=== PATIENT | female | born 1970 | race Caucasian/White ===

== ENCOUNTER 2019-12-23 23:52 | Inpatient (IN) | payer BC ==
[~2019-12-23] VITALS: Ht 175.3 cm; Wt 113.6 kg
[2019-12-24] VITALS (9 sets, daily range): BP systolic 123–172; BP diastolic 74–103
[2019-12-24] MEDS ORDERED: nitroGLYCERIN 0.4mg/hour patch TD ONE (00:15)
[2019-12-24] MEDS ORDERED: aspirin 81mg tab.chew PO ONE (00:15)
[2019-12-24 00:31] LABS: BASOPHILS # (AUTO) 0.1 X10'3 (0-0.2); BASOPHILS % (AUTO) 0.9 % (0-1); EOSINOPHILS # (AUTO) 0.1 X10'3 (0-0.9); EOSINOPHILS % (AUTO) 1.3 % (0-6); HEMATOCRIT 42.9 % (35.0-45.0); HEMOGLOBIN 14.5 g/dl (12.0-16.0); LYMPHOCYTES # (AUTO) 2.1 X10'3 (1.1-4.8); LYMPHOCYTES % (AUTO) 26.9 % (21-51); MEAN CORPUSCULAR HEMOGLOBIN 32.4 PG (27.0-31.0); MEAN CORPUSCULAR HGB CONC 33.8 g/dL (33.0-36.5); MEAN CORPUSCULAR VOLUME 95.9 FL (78-98); MEAN PLATELET VOLUME 7.8 FL (7.4-10.4); MONOCYTES # (AUTO) 0.4 X10'3 (0-0.9); MONOCYTES % (AUTO) 5.1 % (2-12); NEUTROPHILS # (AUTO) 5.2 X10'3 (1.8-7.7); NEUTROPHILS % (AUTO) 65.8 % (42-75); PLATELET COUNT 193 X10'3 (140-440); RED BLOOD COUNT 4.47 X10'6 (4.20-5.60); RED CELL DISTRIBUTION WIDTH 13.3 % (11.5-14.5); WHITE BLOOD COUNT 7.9 X10'3 (4.5-11.0)
--- NOTE | 2019-12-24 00:33 | NUR ---
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
[2019-12-24 00:50] LABS: ALANINE AMINOTRANSFERASE 27 U/L (12-78); ALBUMIN 3.2 G/DL (3.4-5.0); ALBUMIN/GLOBULIN RATIO 0.9 (1.1-1.5); ALKALINE PHOSPHATASE 89 IU/L (46-116); ANION GAP 9 (8-16); ASPARTATE AMINO TRANSFERASE 27 U/L (10-37); BILIRUBIN,TOTAL 0.3 MG/DL (0.1-1.0); BLOOD UREA NITROGEN 7 MG/DL (7-18); BUN/CREATININE RATIO 7.8 (6.6-38.0); CALCIUM 8.6 MG/DL (8.5-10.1); CHLORIDE 106 MMOL/L (99-107); GLUCOSE 127 MG/DL (70-104); POTASSIUM 4.1 MMOL/L (3.5-5.1); SODIUM 140 MMOL/L (135-145); TOTAL CARBON DIOXIDE 24.8 MMOL/L (24-32); TOTAL PROTEIN 6.8 G/DL (6.4-8.2); eGFR 67 ML/MIN
[2019-12-24] MEDS ORDERED: mag hydrox/Alum hydrox/simeth 30ml oral suspension PO PRN (01:10)
[2019-12-24] MEDS ORDERED: ondansetron/PF 4mg/2ml inj IV PRN (01:10)
[2019-12-24] MEDS ORDERED: acetaminophen 325mg tablet PO PRN (01:10)
[2019-12-24] MEDS ORDERED: potassium Cl 20 mEq SR tablet PO PRN ×2 (01:10)
[2019-12-24] MEDS ORDERED: nitroGLYCERIN 0.4mg SUBLingual tab SL PRN ×2 (01:10→01:15)
[2019-12-24] MEDS ORDERED: magnesium hydroxide 30ml (MOM) UD suspension PO PRN (01:10)
[2019-12-24] MEDS ORDERED: potassium CL 10mEq/100ml bag 100 ML IV PRN ×2 (01:10)
[2019-12-24] MEDS ORDERED: magnesium 2GM in 50ml NS 50 ML IV PRN (01:10)
[2019-12-24] MEDS ORDERED: magnesium 4gm in 100ml NS 100 ML IV PRN (01:10)
[2019-12-24] MEDS ORDERED: magnesium Cl slow-release 64mg tablet PO PRN (01:10)
[2019-12-24] MEDS ORDERED: morphine 2 MG/ML inj. syringe IV PRN (01:10)
[2019-12-24] MEDS ORDERED: morphine 4 MG/ML inj SYRINge IV PRN (01:15)
[2019-12-24] MEDS ORDERED: regadenoson 0.4mg/5ml syringe IV ONE (01:15)
[2019-12-24] MEDS ORDERED: aminophylline 250mg/10ml inj. IV PRN (01:15)
[2019-12-24] MEDS ORDERED: metoprolol tartrate 1mg/ml inj IV PRN (01:15)
[2019-12-24 01:30] LABS: CLARITY,URINE CLEAR (Clear); COLOR,URINE STRAW (Yellow); GLUCOSE, URINE NEGATIVE (Neg); KETONES,URINE NEGATIVE (Neg); LEUKOCYTE ESTERASE ,URINE TRACE (Neg); NITRITES, URINE NEGATIVE (Neg); OCCULT BLOOD,URINE NEGATIVE (Neg); PH,URINE 6.5 (4.8-8.0); PROTEIN,URINE NEGATIVE (Neg); UROBILINOGEN,URINE 0.2 E.U/dL (0.2-1.0)
[2019-12-24] MEDS ORDERED: CLON0.5T23 PO (01:31)
[2019-12-24] MEDS ORDERED: METF500T PO (01:31)
[2019-12-24] MEDS ORDERED: ATEN-169 PO (01:31)
[2019-12-24] MEDS ORDERED: LISI40TA4 PO (01:31)
[2019-12-24] MEDS ORDERED: MIRT15TA PO (01:32)
[2019-12-24 01:36] LABS: UA COLLECTION TYPE CLN CATCH MIDSTREAM
[2019-12-24 01:39] LABS: BACTERIA,URINE 1+ /HPF (Neg); MUCUS STRANDS FEW /LPF (Neg); RBC,URINE NONE SEEN /HPF (0-2); SQUAMOUS EPITHELIAL CELL,UR FEW /LPF (FEW); WBC,URINE 0-4 /HPF (0-4)
--- NOTE | 2019-12-24 02:38 | NUR ---
Recieved report from Elli SMITH in the ER. Pt arrived on the unit via wheelchair and was able to ambulate with a steady gate to the bed. Pt is on R/A with IV SL. Pt rates pain at 0/10, has no signs of distress. Will continue to monitor.
[2019-12-24] MEDS: normal saline 1000ml 1,000 ML IV SCH ×2 (02:49→11:06)
[2019-12-24] MEDS ORDERED: MESSAGE TO PHARMACY PO ONE (05:00)
[2019-12-24] MEDS ORDERED: dextrose 50%-water 50ml dispensing syringe IV PRN ×2 (05:00)
[2019-12-24] MEDS ORDERED: dextrose ORAL solution 15 GM/59 ML bottle PO PRN ×2 (05:00)
[2019-12-24] MEDS ORDERED: glucagon, human recombinant 1mg kit SUBCUT PRN (05:00)
[2019-12-24] MEDS ORDERED: insulin Lispro (HumaLOG) vial - multi-dose SQ SCH (05:00)
[2019-12-24] MEDS ORDERED: ibuprofen tablet 400 MG TABLET PO PRN (05:55)
--- NOTE | 2019-12-24 06:30 | NUR ---
Patient in room [facility]. I have received report from radha SMITH and had the opportunity to ask questions and assume patient care.
--- NOTE | 2019-12-24 06:53 | NUR ---
Problems reprioritized. Patient report given, questions answered & plan of care reviewed with Can RN.
[2019-12-24] MEDS ORDERED: aspirin 81mg tab.chew PO SCH (08:00)
[2019-12-24] MEDS ORDERED: metoprolol tartrate 12.5mg (1/2 tablet) PO SCH (08:00)
[2019-12-24] MEDS ORDERED: atenolol 50mg tablet PO SCH (08:00)
[2019-12-24] MEDS ORDERED: heparin, porcine 5000 units/ml vial SQ SCH (08:00)
[2019-12-24] MEDS ORDERED: K and/or MAG REPLACEMENT MC SCH (08:00)
[2019-12-24] MEDS ORDERED: lisinopril 20mg tablet PO SCH (08:00)
[2019-12-24] MEDS ORDERED: clonazePAM 0.5mg tablet PO PRN (10:55)
--- NOTE | 2019-12-24 16:51 | NUR ---
Patient getting ride home with yellow cab at this time. Patient has ability to pay, Patient iv taken out at this time, canula whole and intact. No new medications, patient understands follow up instructions at this time. patient understands to return to er in event of chest pain return. patient is getting clothes on at this time.
--- NOTE | 2019-12-24 17:26 | NUR ---
Patient walking out of hospital at this time. patient is accompanied by student nurses at this time.
[2019-12-24] MEDS ORDERED: insulin glargine (Lantus) pen - multi-dose SQ SCH (21:00)
[2019-12-25] MEDS ORDERED: atorvastatin 10mg tablet PO SCH (08:00)
== END 2019-12-24 17:23 | disposition home or self-care (01) | DRG 311 ==
LOC: ER 23:52 → ED HOLD 12-24 01:47 → SUR 3N 12-24 02:29
PROVIDERS: ADMIT Family Medicine; ATTEND Family Medicine
PROC: 4A02XM4 Measurement of Cardiac Total Activity, External Approach (ICD-10-PCS; principal; 2019-12-24)
PROC: 3E073KZ Introduction of Other Diagnostic Substance into Coronary Artery, Percutaneous Approach (ICD-10-PCS; 2019-12-24)
DX: I20.9 Angina pectoris, unspecified (principal); E11.9 Type 2 diabetes mellitus without complications; E66.9 Obesity, unspecified; E78.5 Hyperlipidemia, unspecified; F12.90 Cannabis use, unspecified, uncomplicated; F41.9 Anxiety disorder, unspecified; I10 Essential (primary) hypertension; Z68.37 Body mass index [BMI] 37.0-37.9, adult; Z79.899 Other long term (current) drug therapy
CPT/HCPCS: 36415; 71045; 78452; 80053; 81001; 82948; 83036; 84484; 85025; 87081; 87088; 93005; 93017; 93306; 99285; A9500; G0378; J1644; J1815; J2785; J7030